=== PATIENT | female | born 1985 | race Caucasian/White ===

== ENCOUNTER 2017-02-04 10:41 | Day surgery (SDC) | payer BC ==
[~2017-02-04] VITALS: Ht 161.3 cm; Wt 83.3 kg
[2017-02-04 12:54] LABS: CSF GLUCOSE 59 mg/dl (40-75)
[2017-02-04 13:27] LABS: CSF APPEARANCE CLEAR (CLEAR); CSF COLOR COLORLESS (COLORLESS); CSF LYMPHOCYTES 67 % (40-80); CSF MONOCYTES 33 % (15-45); CSF RBC CT 0 cmm (0); CSF TUBE NUMBER CSF TUBE 3; CSF WBC CT 2 cmm (0-10)
== END 2017-02-04 13:20 ==
LOC: RADSP 10:41 → SHSB 10:41 → RADSP 12:00
PROVIDERS: Psychiatry & Neurology Neurology
DX: R29.898 Other symptoms and signs involving the musculoskeletal system (principal)

== ENCOUNTER 2017-02-25 08:28 | Emergency (ER) | payer BC ==
[2017-02-25] MEDS ORDERED: PREDNISONE10 M1 PO (08:47)
[2017-02-25] MEDS ORDERED: FLUOXETINE HCL40 M1 PO (09:00)
[2017-02-25] MEDS ORDERED: ADDERALL XR 2020 M1 PO (09:01)
[2017-02-25] MEDS ORDERED: TOPAMAX100 M2 PO (09:01)
[2017-02-25] MEDS ORDERED: ALBUTEROL2.5 MG/3 M INH (09:06)
[2017-02-25] MEDS ORDERED: IBUPROFEN800 M1 PO (09:13)
== END 2017-02-25 09:53 ==
LOC: EDMED 08:28
DX: T78.49XA Other allergy, initial encounter (principal); J45.909 Unspecified asthma, uncomplicated; Z88.8 Allergy status to other drugs, medicaments and biological substances
CPT/HCPCS: J0171; J1200; J2930